=== PATIENT | female | born 1965 | race Caucasian/White ===

== ENCOUNTER → 2017-12-18 | Outpatient (CLI) | payer OTHER ==
[~2017-12-18] MED LIST: AWAKE200 MG PO; DIPHENHIST50 MG PO; LITHIUM CARBON300 M7 PO; PAXIL10 MG; RISPERDAL 3 MG T3 MG PO; VITAMIN B-12500 MCG PO
== END ==
LOC: M.RAD 13:57
DX: Z12.31 Encounter for screening mammogram for malignant neoplasm of breast (principal)

== ENCOUNTER → 2017-12-28 | Outpatient (CLI) | payer OTHER | LOC: M.RAD 12-19 09:59 | DX: N63.20 Unspecified lump in the left breast, unspecified quadrant (principal); R92.2 Inconclusive mammogram ==

== ENCOUNTER → 2018-08-07 | Outpatient (CLI) | payer OTHER | LOC: M.CT 13:22 | DX: J98.11 Atelectasis (principal); E78.5 Hyperlipidemia, unspecified; E83.52 Hypercalcemia ==

== ENCOUNTER → 2019-08-27 | Outpatient (CLI) | payer MEDICARE | LOC: M.RAD 13:08 | DX: Z12.31 Encounter for screening mammogram for malignant neoplasm of breast (principal) ==

== ENCOUNTER → 2020-09-09 | Outpatient (CLI) | payer MEDICARE, SELFPAY | LOC: M.RAD 13:30 | PROVIDERS: ATTEND Family Medicine | DX: Z12.31 Encounter for screening mammogram for malignant neoplasm of breast (principal) ==

== ENCOUNTER → 2020-11-17 | Outpatient (CLI) | payer MEDICARE | LOC: M.ULTRA 13:00 | PROVIDERS: ATTEND Internal Medicine Nephrology | DX: N28.1 Cyst of kidney, acquired (principal); N17.9 Acute kidney failure, unspecified ==